=== PATIENT | female | born 1950 | race Caucasian/White ===

== ENCOUNTER → 2020-11-18 | Outpatient (CLI) | payer OTHER | LOC: EXRD 13:06 | DX: I70.203 Unspecified atherosclerosis of native arteries of extremities, bilateral legs (principal); I83.222 Varicose veins of left lower extremity with both ulcer of calf and inflammation; I87.2 Venous insufficiency (chronic) (peripheral); M79.662 Pain in left lower leg; L97.222 Non-pressure chronic ulcer of left calf with fat layer exposed | CPT/HCPCS: 93926 ==

== ENCOUNTER → 2020-12-03 | Outpatient (CLI) | payer OTHER | LOC: HEART 5 13:30 | DX: I70.203 Unspecified atherosclerosis of native arteries of extremities, bilateral legs (principal); I83.222 Varicose veins of left lower extremity with both ulcer of calf and inflammation; L97.222 Non-pressure chronic ulcer of left calf with fat layer exposed; M79.662 Pain in left lower leg | CPT/HCPCS: 93970 ==